=== PATIENT | male | born 1980 | race Caucasian/White ===

== ENCOUNTER 2017-12-06 19:52 | Emergency (ER) | payer OTHER ==
[2017-12-06] MEDS ORDERED: MORPHINE SULFATE 10 MG/ML INJ IV ONE (21:18)
[2017-12-06] MEDS ORDERED: ONDANSETRON HCL INJ/PF 4 MG/2 ML SDV IV ONE (21:18)
[2017-12-06] MEDS ORDERED: KETOROLAC TROMETHAMINE INJ/PF 30 MG/1 ML SDV IV ONE (21:18)
--- NOTE | 2017-12-06 21:19 | ER Document Report ---
ED Medical Screen (RME) - General Chief Complaint: Flank Pain Stated Complaint: ABDOMINAL PAIN Time Seen by Provider: 12/06/17 21:18 Mode of Arrival: Ambulatory Information source: Patient Notes: Patient presents complaining of right flank pain that goes to the right lower pelvic area. Patient states pain started today. Patient states the pain makes him nauseous and he has vomited 2. Patient denies any urinary symptoms or fever. Patient states he has a history kidney stones and suspects the same today. Patient has never been evaluated by a urologist. I have greeted and performed a rapid initial assessment of this patient. A comprehensive ED assessment and evaluation of the patient, analysis of test results and completion of the medical decision making process will be conducted by additional ED providers. - Related Data Allergies/Adverse Reactions: prednisolone Allergy (Verified 12/06/17 19:53) prednisone Allergy (Verified 12/06/17 19:53) Home Medications: Current Home Medications No Home Medications 12/06/17 [History] Past Medical History Renal/ Medical History: Denies: Hx Peritoneal Dialysis Past Surgical History: Reports: Hx Orthopedic Surgery - rotator cuff Physical Exam - Vital signs Vitals: Temp Pulse Resp BP Pulse Ox 97.6 F 71 18 160/95 H 97 12/06/17 19:55 12/06/17 19:55 12/06/17 19:55 12/06/17 19:55 12/06/17 19:55 - Abdominal Tenderness: Tender - Right lower pelvic tenderness Course - Vital Signs Vital signs: Temp Pulse Resp BP Pulse Ox 97.6 F 71 18 160/95 H 97 12/06/17 19:55 12/06/17 19:55 12/06/17 19:55 12/06/17 19:55 12/06/17 19:55
[2017-12-06 22:22] LABS: ABSOLUTE LYMPHOCYTES (AUTO) 0.9 10^3/uL (0.5-4.7); ABSOLUTE MONOCYTES (AUTO) 0.6 10^3/uL (0.1-1.4); ABSOLUTE NEUT (AUTO) 6.4 10^3/uL (1.7-8.2); BASOPHILS % (AUTO) 0.4 % (0-2); EOSINOPHILS % (AUTO) 0.1 % (0-6); HEMATOCRIT 44.2 % (37.9-51.0); HEMOGLOBIN 15.7 g/dL (13.5-17.0); LYMPHOCYTES % (AUTO) 11.9 % (13-45); MEAN CORPUSCULAR HEMOGLOBIN 37.3 pg (27.0-33.4); MEAN CORPUSCULAR HGB CONC 35.5 g/dL (32.0-36.0); MEAN CORPUSCULAR VOLUME 105 fl (80-97); MONOCYTES % (AUTO) 7.2 % (3-13); PLATELET COUNT 181 10^3/uL (150-450); RED CELL DISTRIBUTION WIDTH 13.9 % (11.5-14.0); SEGMENTED NEUTROPHILS % (AUTO) 80.4 % (42-78); TOTAL CELLS COUNTED % (AUTO) 100 %
--- NOTE | 2017-12-06 22:31 | RADIOLOGY REPORT (SQ) ---
EXAM DESCRIPTION: CT LTD RENAL STONE PROTOCOL ON COMPLETED DATE/TIME: 12/06/2017 10:01 pm REASON FOR STUDY: r flank, RLQ pain COMPARISON: None. TECHNIQUE: CT scan of the abdomen and pelvis performed without intravenous or oral contrast. Images reviewed with lung, soft tissue, and bone windows. Reconstructed coronal and sagittal MPR images revi ewed. All images stored on PACS. All CT scanners at this facility use dose modulation, iterative reconstruction, and/or weight based d osing when appropriate to reduce radiation dose to as low as reasonably achievable (ALARA). [facility]: Dose Right [facility]: CareDose [facility]: Dose Right [facility]: Teradose 4D [facility]: Smart [employer] RADIATION DOSE: CT Rad equipment meets quality standard of care and radiation dose reduction techniq ues were employed. CTDIvol: 16.9 mGy. DLP: 1009 mGy-cm.mGy. LIMITATIONS: None. FINDINGS: LOWER CHEST: No consolidation or pleural effusion. NON-CONTRASTED LIVER, SPLEEN, ADRENALS: Evaluation limited by lack of IV contrast. Diffuse decreased attenuation of the liver, most consistent with fatty infiltration. PANCREAS: No peripancreatic inflammatory changes. GALLBLADDER: Present. RIGHT KIDNEY AND URETER: Assessment for masses limited by lack of IV contrast. Mild right hydroneph rosis and hydroureter. No ureteral calculi are identified. LEFT KIDNEY AND URETER: Assessment for masses limited by lack of IV contrast. No significant calcif ications. No hydronephrosis or hydroureter. AORTA AND RETROPERITONEUM: No abdominal aortic aneurysm. No retroperitoneal masses or hemorrhage. BOWEL AND PERITONEAL CAVITY: No dilated bowel loops or inflammatory changes. No free fluid. APPENDIX: Normal. PELVIS, BLADDER, AND ABDOMINAL WALL:The urinary bladder is decompressed. There is a 2 mm calcificati on at the base urinary bladder adjacent to the right ureterovesical junction. No pelvic mass or free fluid. There is a small fat containing umbilical hernia. There is a small fat containing right ing uinal hernia. BONES: No significant findings. IMPRESSION: 1. Mild right hydroureteronephrosis with a 2 mm calcification at the base of the the ur inary bladder adjacent to the right UVJ. 2. Fatty infiltration of the liver. COMMENT: Quality ID # [id number]: Final reports with documentation of one or more dose reduction techniques (e.g., Automated exposure control, adjustment of the mA and/or kV according to patient size, use of iterative reconstruction technique) TECHNICAL DOCUMENTATION: JOB ID: [id number] [employer]- All Rights Reserved
[2017-12-06 22:32] LABS: APPEARANCE,URINE SLIGHTLY-CLOUDY; BILIRUBIN,URINE NEGATIVE (NEGATIVE); COLOR,URINE YELLOW; GLUCOSE, URINE NEGATIVE (NEGATIVE); KETONES,URINE 80 mg/dL (NEGATIVE); LEUKOCYTE ESTERASE,URINE NEGATIVE (NEGATIVE); NITRITE,URINE NEGATIVE (NEGATIVE); PROTEIN,URINE 100 mg/dL (NEGATIVE); URINE SPECIFIC GRAVITY 1.026
[2017-12-06 22:43] LABS: ALANINE AMINOTRANSFERASE 159 U/L (21-72); ALBUMIN 4.9 g/dL (3.5-5.0); ALKALINE PHOSPHATASE 60 U/L (38-126); ANION GAP 19 (5-19); ASPARTATE AMINO TRANSFERASE 95 U/L (17-59); BILIRUBIN,DIRECT 0.4 mg/dL (0.0-0.4); BILIRUBIN,TOTAL 1.5 mg/dL (0.2-1.3); BLOOD UREA NITROGEN 13 mg/dL (7-20); CALCIUM 10.5 mg/dL (8.4-10.2); CARBON DIOXIDE 21 mmol/L (22-30); CHLORIDE 101 mmol/L (98-107); GLUCOSE 93 mg/dL (75-110); LIPASE 86.6 U/L (23-300); SODIUM 140.7 mmol/L (137-145); TOTAL PROTEIN 7.8 g/dL (6.3-8.2)
[2017-12-06] MEDS ORDERED: LIDOCAINE 1% INJ-PF (10 MG/ML) 30 ML SDV INJ ONE (23:12)
[2017-12-06] MEDS ORDERED: CEFTRIAXONE INJ 1000 MG VIAL IM ONE (23:12)
[2017-12-06] MEDS ORDERED: LEVOFLOXACIN 750 MG TABLET PO ONE (23:15)
[2017-12-06] MEDS ORDERED: HYDROCODONE/ACETAMINOPHEN 5-325 MG (6 TAB/ER DISP) PO PRN (23:21)
--- NOTE | 2017-12-06 23:22 | ER Document Report ---
HPI - HPI Patient complains to provider of: kidney stone Onset: This morning Onset/Duration: Better Quality of pain: Sharp Severity: Severe Pain Level: 0 Context: Patient presents complaining of right flank pain and right lower quadrant pain that started this morning. Patient has a history of kidney stones in the past and suspects the same today. Patient reports nausea and vomiting 2 episodes today. Patient denies any fever. Patient denies any history of diabetes. Patient does state that he had some mild stinging with voiding. Patient initially seen in the triage area and was having significant pain. Patient states that he feels much better and is not having any pain at this time. Patient denies any concerns about possible sexually transmitted infection. Associated Symptoms: Vomiting, Other - flank, abd pain now resolved. denies: Fever Exacerbated by: Denies Relieved by: Denies Similar symptoms previously: Yes Recently seen / treated by doctor: No - ROS ROS below otherwise negative: Yes Systems Reviewed and Negative: Yes All other systems reviewed and negative - CONSTITUTIONAL Constitutional: DENIES: Fever, Chills - GASTROINTESTINAL Gastrointestinal: REPORTS: Abdominal Pain, Nausea, Patient vomiting - URINARY Urinary: REPORTS: Dysuria - stinging - MUSCULOSKELETAL Musculoskeletal: REPORTS: Back Pain - DERM Skin Color: Normal Skin Problems: None Past Medical History - General Information source: Patient - Social History Smoking Status: Never Smoker Frequency of alcohol use: Occasional Drug Abuse: None 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 Denies: Hx Peritoneal Dialysis Past Surgical History: Reports: Hx Orthopedic Surgery - rotator cuff Vertical Provider Document - CONSTITUTIONAL Agree With Documented VS: Yes Exam Limitations: No Limitations General Appearance: WD/WN, No Apparent Distress - HEENT HEENT: Atraumatic, Normocephalic - NECK Neck: Normal Inspection, Supple - RESPIRATORY Respiratory: Breath Sounds Normal, No Respiratory Distress O2 Sat by Pulse Oximetry: 97 - CARDIOVASCULAR Cardiovascular: Regular Rate, Regular Rhythm - GI/ABDOMEN Gastrointestinal: Abdomen Soft, Abdomen Non-Tender - BACK Back: Normal Inspection. negative: CVA Tenderness-Right, CVA Tenderness-Left - MUSCULOSKELETAL/EXTREMETIES Musculoskeletal/Extremeties: MARI BARRETO - NEURO Level of Consciousness: Awake, Alert, Appropriate Motor/Sensory: No Motor Deficit - DERM Integumentary: Warm, Dry, No Rash Course - Re-evaluation Re-evalutation: 12/06/17 23:[address] Webster who recommends consultation with urology 12/06/17 23:20 Consulted with urologist, Dr. Paris, discuss patient presentation, exam findings as well as diagnostic test results. Advises giving patient strainer to go home culturing the urine and placing him on the Levaquin daily for 5 days. Advises having patient follow up with the office, states that patient can call tomorrow to make a follow-up appointment. Discussed use of Levaquin with patient. Discussed medication side effect profile and risk of tendinopathy. Patient is agreeable with this plan of care. Patient encouraged to strain his urine and to follow-up with urology for further evaluation. Patient advised that urine culture will be ordered and that we will call him if we need to change his antibiotics. The patient has been informed that they may have pre-hypertension or hypertension based on a blood pressure reading in the emergency department. I recommend that patient call the primary care provider listed on their discharge instructions or a physician of their choice by this week to arrange follow-up for further evaluation of possible pre-hypertension or hypertension. - Vital Signs Vital signs: Temp Pulse Resp BP Pulse Ox 97.6 F 71 18 160/95 H 97 12/06/17 19:55 12/06/17 19:55 12/06/17 19:55 12/06/17 19:55 12/06/17 19:55 - Laboratory Result Diagrams: 12/06/17 21:50 12/06/17 21:50 Laboratory results interpreted by me: 12/06/17 12/06/17 12/06/17 21:50 21:50 21:50 RBC 4.20 L MCV 105 H MCH 37.3 H Seg Neutrophils % 80.4 H Lymphocytes % 11.9 L Carbon Dioxide 21 L Calcium 10.5 H Total Bilirubin 1.5 H AST 95 H ALT 159 H Urine Protein 100 H Urine Ketones 80 H Urine Blood LARGE H Urine Urobilinogen 2.0 H 12/06/17 23:21 Labs- Entire Visit 12/06/17 12/06/17 12/06/17 21:50 21:50 21:50 WBC 8.0 RBC 4.20 L Hgb 15.7 Hct 44.2 MCV 105 H MCH 37.3 H MCHC 35.5 RDW 13.9 Plt Count 181 Seg Neutrophils % 80.4 H Lymphocytes % 11.9 L Monocytes % 7.2 Eosinophils % 0.1 Basophils % 0.4 Absolute Neutrophils 6.4 Absolute Lymphocytes 0.9 Absolute Monocytes 0.6 Absolute Eosinophils 0.0 Absolute Basophils 0.0 Sodium 140.7 Potassium 4.0 Chloride 101 Carbon Dioxide 21 L Anion Gap 19 BUN 13 Creatinine 1.01 Est GFR ( Amer) > 60 Est GFR (Non-Af Amer) > 60 Glucose 93 Calcium 10.5 H Total Bilirubin 1.5 H Direct Bilirubin 0.4 Neonat Total Bilirubin Not Reportable Neonat Direct Bilirubin Not Reportable Neonat Indirect Bili Not Reportable AST 95 H ALT 159 H Alkaline Phosphatase 60 Total Protein 7.8 Albumin 4.9 Lipase 86.6 Urine Color YELLOW Urine Appearance SLIGHTLY-CLOUDY Urine pH 6.0 Ur Specific [place] 1.026 Urine Protein 100 H Urine Glucose (UA) NEGATIVE Urine Ketones 80 H Urine Blood LARGE H Urine Nitrite NEGATIVE Urine Bilirubin NEGATIVE Urine Urobilinogen 2.0 H Ur Leukocyte Esterase NEGATIVE Urine WBC (Auto) 56 Urine RBC (Auto) >182 Urine Mucus (Auto) OCC Urine Ascorbic Acid NEGATIVE - Diagnostic Test Radiology reviewed: Reports reviewed Discharge - Discharge Clinical Impression: Kidney stone on right side, Elevated blood pressure reading Condition: Stable Disposition: HOME, SELF-CARE Instructions: Kidney Stone ([facility]), Levofloxacin, Oral Narcotic Medication ([facility]) , Rocephin ([facility]) Additional Instructions: Return immediately for any new or worsening symptoms Followup with your primary care provider, call tomorrow to make a followup appointment Strain your urine Follow-up with urologist, call tomorrow for an appointment Return for any increased pain, fever, vomiting, or any concerning symptoms Prescriptions: Hydrocodone/Acetaminophen [[place] 5-325 Tablet] 1 each PO Q4 PRN #10 tablet PRN Reason: Levofloxacin [Levaquin 750 mg Tablet] 750 mg PO DAILY #4 tablet Forms: Elevated Blood Pressure, Return to Work Referrals: ALEXI PARIS II, MD [SULAIMAN NICOLE] - Follow up in 3-5 days
[2017-12-06 23:58] VITALS: BP 138/85
== END 2017-12-07 00:01 | disposition home or self-care (01) ==
LOC: ER 19:52
DX: N21.0 Calculus in bladder (principal); R11.2 Nausea with vomiting, unspecified; R30.0 Dysuria; R03.0 Elevated blood-pressure reading, without diagnosis of hypertension
CPT/HCPCS: 99284; 96372; 36415; 87086; 83690; 85025; 87088; 80053; 81001; 76380; J3490; J0696

== ENCOUNTER 2018-10-20 10:11 | Emergency (ER) | payer OTHER ==
[2018-10-20] MEDS ORDERED: KETOROLAC TROMETHAMINE INJ/PF 30 MG/1 ML SDV IV ONE (10:27)
[2018-10-20] MEDS ORDERED: ONDANSETRON HCL INJ/PF 4 MG/2 ML SDV IV ONE (10:27)
[2018-10-20] MEDS ORDERED: MORPHINE SULFATE 10 MG/ML INJ IV ONE (10:36)
--- NOTE | 2018-10-20 10:40 | ER Document Report ---
ED General - General Chief Complaint: Flank Pain Stated Complaint: FLANK PAIN Time Seen by Provider: 10/20/18 10:26 TRAVEL OUTSIDE OF THE [place] IN LAST 30 DAYS: No - HPI Notes: Patient is a 38-year-old male with a history of previous kidney stones who presents to the ED complaining of right flank pain that radiates around into his right lower abdomen/groin primarily over the last 1-2 days, but has been intermittently present for about a week. Patient states that his pain became a lot worse this morning. He did notice some hematuria earlier on, but none recently. He does have associated nausea without vomiting. He is still able to eat and drink, but does have a decreased p.o. intake. He is having normal bowel movements with the last one this morning. No other concerns or complaints at this time. Denies any headache, fever, URI, sore throat, chest pain, palpitations, syncope, cough, shortness of breath, wheeze, dyspnea, vomiting/diarrhea, urinary retention, dysuria, hematuria, loss of control of bowel or bladder, numbness/tingling, saddle anesthesia, muscle paralysis/ weakness, or rash. - Related Data Allergies/Adverse Reactions: prednisolone Allergy (Verified 12/06/17 19:53) prednisone Allergy (Verified 12/06/17 19:53) Past Medical History - Social History Smoking Status: Unknown if Ever Smoked Family History: Reviewed & Not Pertinent - Past Medical History Cardiac Medical History: Reports: Hx Hypercholesterolemia Renal/ Medical History: Reports: Hx Kidney Stones. Denies: Hx Peritoneal Dialysis Past Surgical History: Reports: Hx Orthopedic Surgery - rotator cuff Review of Systems - Review of Systems -: Yes All other systems reviewed and negative Physical Exam - Vital signs Vitals: Temp Pulse Resp BP Pulse Ox 97.6 F 63 18 146/75 H 97 10/20/18 10:19 10/20/18 10:19 10/20/18 10:19 10/20/18 10:19 10/20/18 10:19 - Notes Notes: PHYSICAL EXAMINATION: GENERAL: Well-appearing, well-nourished and in no acute distress. HEAD: Atraumatic, normocephalic. EYES: Pupils equal round and reactive to light, extraocular movements intact, sclera anicteric, conjunctiva are normal. ENT: EAC clear b/l. TM's intact b/l without erythema, fluid, or perforation. Nares patent and without discharge. oropharynx clear without exudates. No tonsilar hypertrophy or erythema. Moist mucous membranes. No sinus tenderness. NECK: Normal range of motion, supple without lymphadenopathy LUNGS: Breath sounds clear to auscultation bilaterally and equal. No wheezes rales or rhonchi. HEART: Regular rate and rhythm without murmurs, rubs, gallops. ABDOMEN: Soft, nondistended abdomen. No guarding, no rebound. No masses appreciated. Normal bowel sounds present. No CVA tenderness bilaterally. Non- tender to palpation throughout. Merchant neg and no tenderness at [place]. Musculoskeletal: FROM to passive/active. Strength 5+/5. Extremities: No cyanosis, clubbing, or edema b/l. Peripheral pulses 2+. Capillary refill less than 3 seconds. NEUROLOGICAL: Normal speech, normal gait. PSYCH: Normal mood, normal affect. SKIN: Warm, Dry, normal turgor, no rashes or lesions noted. Course - Re-evaluation Re-evalutation: 10/20/18 12:34 Patient is an afebrile, well-hydrated, 38-year-old male who presents to the ED with a 6 mm right ureteral stone with secondary hydroureter and hydronephrosis. There is no evidence of infection. Vitals are acceptable without significant tachycardia, tachypnea, or hypoxia. PE is otherwise unremarkable. Patient is nontoxic-appearing and is tolerating p.o. without difficulty. CBC, CMP, urinalysis otherwise unremarkable aside from hematuria. See CT scan result. Patient has received fluids, nausea medicine, and pain medicine. No further labs or imaging warranted at this time. Low suspicion/risk for severe dehydration, urosepsis, acute appendicitis, bowel obstruction, acute cholecystitis, perforated diverticulitis, incarcerated hernia, pancreatitis, perforated ulcer, peritonitis, sepsis, testicular torsion, or other systemic emergent condition at this time. Patient is aware that his condition can change from initial presentation and he needs to monitor symptoms closely and seek medical attention if any acute changes. I will send him home with a prescription for Zofran, Flomax, and pain medicine. Conservative measures otherwise for symptoms. Recheck with PCM in 3-5 days. Patient is to schedule an appointment this week with urology. Return to the ED with any worsening/ concerning symptoms otherwise as reviewed in discharge. Patient is in agreement. - Vital Signs Vital signs: Temp Pulse Resp BP Pulse Ox 97.6 F 63 18 146/75 H 97 10/20/18 10:19 10/20/18 10:19 10/20/18 10:19 10/20/18 10:19 10/20/18 10:19 - Laboratory Result Diagrams: 10/20/18 10:50 10/20/18 10:50 Laboratory results interpreted by me: 10/20/18 10/20/18 10/20/18 10:50 10:50 11:35 MCH 34.7 H Calcium 10.4 H Urine Protein 30 H Urine Blood LARGE H Discharge - Discharge Clinical Impression: Right ureteral stone Condition: Stable Disposition: HOME, SELF-CARE Instructions: Kidney Stone ([facility]) Additional Instructions: Push fluids (i.e. water, cranberry juice) Proper hygenic technique Keep the skin clean Tylenol/ibuprofen as needed Take medications as directed F/u with your PCM in 3-5 days for a recheck Call urology tomorrow to schedule an appointment for further evaluation and management Return to the ED with any worsening symptoms and/or development of fever, headache, chest pain, palpitations, syncope, shortness of breath, trouble breathing, abdominal pain, n/v/d, blood in stool/urine, loss of control of bowel /bladder, urinary retention, or other worsening symptoms that are concerning to you. Prescriptions: Ondansetron [Zofran Odt 4 mg Tablet] 1 - 2 tab PO Q4H PRN #15 tab.rapdis PRN Reason: For Nausea/Vomiting Oxycodone HCl/Acetaminophen [Percocet 5-325 mg Tablet] 1 tab PO TID #15 tab Tamsulosin HCl [Flomax] 0.4 mg PO DAILY #10 cap.er.24h Forms: Elevated Blood Pressure Referrals: ALEXI PARIS II, MD [SULAIMAN NICOLE] - Follow up in 3-5 days
[2018-10-20] MEDS: NORMAL SALINE 1000 ML 1,000 ML IV PRN ×2 (10:55→11:37)
[2018-10-20 11:13] LABS: ABSOLUTE EOSINOPHILS # (AUTO) 0.1 10^3/uL (0.0-0.6); ABSOLUTE LYMPHOCYTES (AUTO) 1.2 10^3/uL (0.5-4.7); ABSOLUTE MONOCYTES (AUTO) 0.6 10^3/uL (0.1-1.4); ABSOLUTE NEUT (AUTO) 6.8 10^3/uL (1.7-8.2); BASOPHILS % (AUTO) 0.5 % (0-2); EOSINOPHILS % (AUTO) 0.7 % (0-6); HEMATOCRIT 44.9 % (37.9-51.0); LYMPHOCYTES % (AUTO) 13.8 % (13-45); MEAN CORPUSCULAR HEMOGLOBIN 34.7 pg (27.0-33.4); MEAN CORPUSCULAR HGB CONC 35.7 g/dL (32.0-36.0); MEAN CORPUSCULAR VOLUME 97 fl (80-97); MONOCYTES % (AUTO) 7.3 % (3-13); PLATELET COUNT 215 10^3/uL (150-450); RED BLOOD COUNT 4.62 10^6/uL (4.35-5.55); RED CELL DISTRIBUTION WIDTH 12.4 % (11.5-14.0); SEGMENTED NEUTROPHILS % (AUTO) 77.7 % (42-78); TOTAL CELLS COUNTED % (AUTO) 100 %; WHITE BLOOD COUNT 8.7 10^3/uL (4.0-10.5)
[2018-10-20 11:27] LABS: ALANINE AMINOTRANSFERASE 33 U/L (21-72); ALBUMIN 4.7 g/dL (3.5-5.0); ALKALINE PHOSPHATASE 62 U/L (38-126); ANION GAP 15 (5-19); ASPARTATE AMINO TRANSFERASE 21 U/L (17-59); BILIRUBIN,DIRECT 0.2 mg/dL (0.0-0.4); BILIRUBIN,TOTAL 0.5 mg/dL (0.2-1.3); BLOOD UREA NITROGEN 10 mg/dL (7-20); CALCIUM 10.4 mg/dL (8.4-10.2); CARBON DIOXIDE 25 mmol/L (22-30); CHLORIDE 102 mmol/L (98-107); GLUCOSE 94 mg/dL (75-110); LIPASE 86.5 U/L (23-300); POTASSIUM 4.5 mmol/L (3.6-5.0); SODIUM 142.2 mmol/L (137-145)
[2018-10-20 12:04] LABS: APPEARANCE,URINE CLEAR; BILIRUBIN,URINE NEGATIVE (NEGATIVE); COLOR,URINE YELLOW; GLUCOSE, URINE NEGATIVE (NEGATIVE); KETONES,URINE NEGATIVE (NEGATIVE); LEUKOCYTE ESTERASE,URINE NEGATIVE (NEGATIVE); NITRITE,URINE NEGATIVE (NEGATIVE); PROTEIN,URINE 30 mg/dL (NEGATIVE); URINE SPECIFIC GRAVITY 1.024; UROBILINOGEN,URINE NEGATIVE mg/dL (<2.0)
--- NOTE | 2018-10-20 12:21 | RADIOLOGY REPORT (SQ) ---
EXAM DESCRIPTION: CT LTD RENAL STONE PROTOCOL ON COMPLETED DATE/TIME: 10/20/2018 11:49 am REASON FOR STUDY: Rt flank pain COMPARISON: None. TECHNIQUE: CT scan of the abdomen and pelvis performed without intravenous or oral contrast. Images reviewed with lung, soft tissue, and bone windows. Reconstructed coronal and sagittal MPR images revi ewed. All images stored on PACS. All CT scanners at this facility use dose modulation, iterative reconstruction, and/or weight based d osing when appropriate to reduce radiation dose to as low as reasonably achievable (ALARA). [facility]: Dose Right [facility]: CareDose [facility]: Dose Right [facility]: Teradose 4D [facility]: Smart [employer] RADIATION DOSE: CT Rad equipment meets quality standard of care and radiation dose reduction techniq ues were employed. CTDIvol: 11.9 mGy. DLP: 740 mGy-cm.mGy. LIMITATIONS: None. FINDINGS: 6 mm right mid 3rd ureteral stone is present, at the level of the right L5 transverse proc ess. This causes moderate right hydronephrosis and upper hydroureter. These findings are best shown on coronal image 47 and axial image 66. No other right-sided ureteral or intrarenal calculi. No right renal cysts or masses. LOWER CHEST: No significant findings. No nodules or infiltrates. NON-CONTRASTED LIVER, SPLEEN, ADRENALS: Evaluation limited by lack of IV contrast. No identified sign ificant masses. PANCREAS: No masses. No peripancreatic inflammatory changes. GALLBLADDER: No identified stones by CT criteria. No inflammatory changes to suggest cholecystitis. RIGHT KIDNEY AND URETER: As above. LEFT KIDNEY AND URETER: No suspicious masses. Assessment limited by lack of IV contrast. No signifi cant calcifications. No hydronephrosis or hydroureter. AORTA AND RETROPERITONEUM: No aneurysm. No retroperitoneal masses or adenopathy. BOWEL AND PERITONEAL CAVITY: No obvious masses or inflammatory changes. No free fluid. APPENDIX: Normal. PELVIS, BLADDER, AND ABDOMINAL WALL:No abnormal masses. No free fluid. Bladder normal. BONES: No significant findings. OTHER: No other significant finding. IMPRESSION: 6 mm stone in the mid 3rd right ureter at the level of the L5 transverse process with mo derate right upper hydroureter and hydronephrosis COMMENT: Quality ID # [id number]: Final reports with documentation of one or more dose reduction techniques (e.g., Automated exposure control, adjustment of the mA and/or kV according to patient size, use of iterative reconstruction technique) TECHNICAL DOCUMENTATION: JOB ID: [id number] [employer]- All Rights Reserved Reading location - IP/workstation name: [email or web address]
[2018-10-20 12:50] VITALS: BP 140/72
== END 2018-10-20 12:41 | disposition home or self-care (01) ==
LOC: ER 10:11
DX: N20.1 Calculus of ureter (principal); R10.31 Right lower quadrant pain; R11.0 Nausea
CPT/HCPCS: 99284; 96361; 96374; 96375; 36415; 87086; 83690; 85025; 80053; 81001; 76380; J1885; J2270; J2405; J7030